=== PATIENT | male | born 1935 ===

== ENCOUNTER → 2016-10-07 | Day surgery (SDC) | payer BC ==
[~2016-10-07] MED LIST: Artificial Tear OPHTH.OINT* 3.5 GM ONE; Bacitracin OPHTH.OINT* 3.5 GM ONE; Buffered Lidocaine 1% SYR 3ML* 3 ML/SYR SYRINGE INTRADERM ONE; Lidocain 1% EPI 1:100,000 * 30 ML MDV ONE; Midazolam* 1 MG/ML 2 ML VIAL (2 MG) ONE; Propofol* 10 MG/ML 20 ML BTL IV PUSH ONE; ceFAZolin 2 GM PREMIX (*) 2 GM/50 ML BAG IVPB ONE; fentaNYL* 50 MCG/ML 2 ML VIAL (100 MCG VIAL) ONE
[2016-10-07 09:53] VITALS: BP 104/71
== END | disposition home or self-care (01) ==
LOC: OREAST 07:43
PROVIDERS: ATTEND Plastic Surgery
DX: L72.0 Epidermal cyst (principal); I48.92 Unspecified atrial flutter; Z79.01 Long term (current) use of anticoagulants; I10 Essential (primary) hypertension; Z95.2 Presence of prosthetic heart valve
CPT/HCPCS: 88304; A9270-GY; J0690; J2250; J2704; J3010

== ENCOUNTER 2019-06-19 10:15 | Day surgery (SDC) | payer BC ==
--- NOTE | 2019-06-13 12:33 | HP ---
AMENDED REPORT NOW INCLUDES DESIGNATED COSIGNER DATE OF ADMISSION: 06/19/2019. DATE OF OFFICE VISIT/ENCOUNTER: 06/04/2019. ATTENDING SURGEON: Dr. Ailyn Heck * (dictated by ROBINA Bernard). PROCEDURE: Right wrist carpal tunnel release. LEGAL TECHNICIAN: Dr. Mohan. HISTORY OF PRESENT ILLNESS: This is an 83-year-old male who complains of numbness and tingling in his right hand. This has been ongoing for over a year. It bothers him mostly at night. Symptoms effect the median nerve distribution of his right hand. He has had a carpal tunnel release in the past with very good results. He had an EMG in [place] approximately four years ago which showed carpal tunnel syndrome on the right as well. He would like to proceed with surgical intervention at this time. He has a history of atrial fibrillation and a mitral valve repair. We will get clearance from his basket turner, Dr. Mohan. The patient is on Xarelto daily. He will continue taking it during the perioperative time frame. PAST MEDICAL HISTORY: 1. History of atrial fibrillation. 2. Hypertension. PAST SURGICAL HISTORY: 1. Mitral valve repair. 2. Left carpal tunnel release. 3. Hernia repair. CURRENT MEDICATIONS: 1. Carvedilol 3.125 mg daily. 2. Losartan potassium 50 mg daily. 3. Multivitamin daily. 4. Red rice yeast. 5. Xarelto 20 mg daily. ALLERGIES: No known drug allergies FAMILY HISTORY: Cancer, diabetes. SOCIAL HISTORY: The patient is retired. He denies tobacco use and recreational drug use. He drinks alcohol on occasion. REVIEW OF SYSTEMS: Negative for general, cephalic, cardiovascular, respiratory , GI, , other musculoskeletal, integumentary, endocrine, neurologic, and hematologic symptoms. Infectious Disease: Negative for MRSA, hepatitis C, HIV. PHYSICAL EXAMINATION GENERAL: Well-developed, well-nourished, 83-year-old male in no acute distress. VITAL SIGNS: Height 5'10", weight 189 pounds. Pulse rate 60, blood pressure 126/74. HEENT: Normocephalic, atraumatic. Pupils are equal, round, and reactive to light and accommodation. Extraocular movements are intact. NECK: Supple. No palpable lymph nodes. Throat is clear. CARDIOVASCULAR: Regular rate and rhythm. S1, S2. No murmurs, rubs or gallops. No edema. PULMONARY: Lungs are clear to auscultation bilaterally. No wheezes, rales, or rhonchi. ABDOMEN: Positive bowel sounds. Soft, nontender. MUSCULOSKELETAL: On exam of his right hand, he has some mild thenar wasting and weakness with thumb abduction. He had good strength with finger abduction. He can fully flex and extend all of his fingers. He has a positive Tinel sign at the median nerve. NEUROLOGIC: Alert and oriented times three. Cranial nerves II through XII are intact. IMPRESSION: Right carpal tunnel syndrome. PLAN: The patient is scheduled to undergo a right wrist carpal tunnel release with Dr. Heck on 06/19/2019. He will return to the office ten days postop for follow- up and suture removal. A prescription for Tramadol was e-scribed to the patient's pharmacy for postoperative pain management. ROBINA BERNARD [id number]/[facility] #: [id number] MTDJeffery
[~2019-06-19 10:15] MED LIST changes: -Artificial Tear OPHTH.OINT* 3.5 GM ONE; -Bacitracin OPHTH.OINT* 3.5 GM ONE; -Buffered Lidocaine 1% SYR 3ML* 3 ML/SYR SYRINGE INTRADERM ONE; +Buffered Lidocaine 1% SYRIN* 1 ML/SYRINGE INTRADERM ONE; +Dexamethasone TAB* 4 MG PO ONE; +Famotidine IV* 10 MG/ML 2 ML (20 mg) IV ONE; +Lactated Ringers 1000 ML Bag* 1,000 ML IV SCH; -Lidocain 1% EPI 1:100,000 * 30 ML MDV ONE; -Midazolam* 1 MG/ML 2 ML VIAL (2 MG) ONE; +Naloxone* 0.4 MG/ML 1 ML VIAL IV PRN; +Ondansetron ODT TAB* 4 MG PO ONE; +PROCHLORPERAZINE INJ 5 MG/ML 2 ML VIAL IV PRN; -Propofol* 10 MG/ML 20 ML BTL IV PUSH ONE; -ceFAZolin 2 GM PREMIX (*) 2 GM/50 ML BAG IVPB ONE; -fentaNYL* 50 MCG/ML 2 ML VIAL (100 MCG VIAL) ONE; +oxyCODONE/Acetamin 5/325 MG* TAB PO PRN
[2019-06-19] MEDS ORDERED: Famotidine IV* 10 MG/ML 2 ML (20 mg) ONE (10:47)
[2019-06-19] MEDS ORDERED: Ondansetron ODT TAB* 4 MG ONE (10:47)
[2019-06-19] MEDS ORDERED: Dexamethasone TAB* 4 MG ONE (10:47)
[2019-06-19] MEDS ORDERED: fentaNYL* 50 MCG/ML 2 ML VIAL (100 MCG VIAL) ONE (11:18)
[2019-06-19] MEDS ORDERED: Midazolam* 1 MG/ML 2 ML VIAL (2 MG) ONE (11:18)
[2019-06-19] MEDS ORDERED: Lidocaine 1% INJ* 10 MG/ML 30 ML SDV ONE (11:43)
[2019-06-19] MEDS ORDERED: Propofol* 10 MG/ML 20 ML BTL ONE (12:08)
[2019-06-19] MEDS ORDERED: Lidocaine 2% PF * 5 ML VIAL ONE (12:08)
[2019-06-19 13:23] VITALS: BP 116/88
--- NOTE | 2019-06-19 16:36 | OP ---
DATE OF OPERATION: 06/19/19 [facility] DATE OF : 39 SURGEON: Ailyn Heck MD DINING SERVICE SUPERVISOR: ROBINA Bernard ANESTHESIA: Local MAC. PRE-OP DIAGNOSIS: Right carpal tunnel syndrome. POST-OP DIAGNOSIS: Right carpal tunnel syndrome. OPERATIVE PROCEDURE: Right carpal tunnel release. INDICATIONS: Tony is an 83-year-old male who has numbness and tingling in the median nerve distribution of his right hand. He presents for right carpal tunnel release. ESTIMATED BLOOD LOSS: Zero. TOURNIQUET TIME: Approximately 10 minutes. DESCRIPTION OF PROCEDURE: The patient was brought to the operating room and was given a sedation anesthetic and a local infiltration of 10 cc of 1% plain lidocaine in the palm of his right hand. Skin of his right hand and forearm was prepped and draped in the usual sterile fashion. The hand and forearm were exsanguinated and the tourniquet elevated to 250 mmHg. A longitudinal incision was made on the palm in line with the ring finger. We dissected through the subcutaneous tissue down to the transverse carpal ligament. The ligament was divided sharply with a knife and then more proximally with the scissors. The nerve was dissected free from the surrounding tissue and there was an area of severe compression at the mid portion of the ligament. The wound was irrigated and the skin edges were reapproximated with 4-0 nylon suture. The wound was dressed with Xeroform, 4x4, Webril, and an Fan wrap. The patient tolerated the procedure well and was brought to the recovery room in good condition. [id number]/[facility] #: [id number] [facility] HOSPITALJeffery
== END 2019-06-19 13:15 | disposition home or self-care (01) ==
LOC: OREAST 10:15
PROVIDERS: ATTEND Orthopaedic Surgery
DX: G56.01 Carpal tunnel syndrome, right upper limb (principal); I10 Essential (primary) hypertension; I48.91 Unspecified atrial fibrillation; Z79.01 Long term (current) use of anticoagulants; Z87.891 Personal history of nicotine dependence; Z95.2 Presence of prosthetic heart valve
CPT/HCPCS: A9270-GY; J2250; J2704; J3010; J8540

== ENCOUNTER 2022-02-12 12:39 | Observation (INO) ==
[2022-02-12 14:45] LABS: ABS Basophils 0.1 10^3/ul (0-0.2); ABS Eosinophils 0.2 10^3/ul (0-0.6); ABS Lymphocytes 1.3 10^3/ul (1.0-4.8); ABS Monocytes 0.6 10^3/ul (0-0.8); ABS Neutrophils 3.6 10^3/ul (1.5-7.7); Eosinophil % 3.3 %; Hematocrit 41 % (42-52); Hemoglobin 13.7 g/dL (14.0-18.0); Lymphocyte % 22.7 %; Mean Corpuscular HGB Conc 33 g/dL (31-36); Mean Corpuscular Hemoglobin 31 pg (27-31); Mean Corpuscular Volume 95 fL (80-94); Mean Platelet Volume 8.3 fL (7.4-10.4); Platelet Count 185 10^3/uL (150-450); Red Blood Count 4.35 10^6 /uL (4.18-5.48); Red Cell Distribution Width 14 % (10-15); White Blood Count 5.8 10^3/uL (3.5-10.8)
[2022-02-12 14:56] LABS: INR 1.17 (0.86-1.15)
[2022-02-12 15:40] LABS: Albumin/Globulin Ratio 1.5 (1-3); Calcium 8.7 mg/dL (8.6-10.3); Globulin 2.6 g/dL (2-4); Potassium 4.5 mmol/L (3.5-5.0); Total Bilirubin 0.7 mg/dL (0.2-1.0); Total Protein 6.6 g/dL (6.4-8.9); eGFR CKD-EPI 63.4 (>60)
[2022-02-12] MEDS ORDERED: Iohexol 350 (CONTRAST) 500 ML MDV IV ONE (15:51)
[2022-02-12 16:19] LABS: High Sensitivity Troponin 1 Hr 7 pg/mL (<20)
[2022-02-12 21:20] LABS: Urine Appearance Clear; Urine Bilirubin Negative (Negative); Urine Blood Negative (Negative); Urine Color Yellow; Urine Glucose Negative (Negative); Urine Ketones Negative (Negative); Urine Nitrite Negative (Negative); Urine Protein Negative (Negative); Urine Specific Gravity 1.014 (1.002-1.030); Urine Urobilinogen Negative (Negative)
[2022-02-13 05:19] LABS: ABS Eosinophils 0.3 10^3/ul (0-0.6); ABS Lymphocytes 1.2 10^3/ul (1.0-4.8); ABS Monocytes 0.6 10^3/ul (0-0.8); Eosinophil % 5.2 %; Hematocrit 39 % (42-52); Hemoglobin 13.1 g/dL (14.0-18.0); Lymphocyte % 24.2 %; Mean Corpuscular HGB Conc 33 g/dL (31-36); Mean Corpuscular Hemoglobin 32 pg (27-31); Mean Corpuscular Volume 94 fL (80-94); Mean Platelet Volume 8.2 fL (7.4-10.4); Platelet Count 173 10^3/uL (150-450); Red Blood Count 4.15 10^6 /uL (4.18-5.48); Red Cell Distribution Width 14 % (10-15); White Blood Count 5.1 10^3/uL (3.5-10.8)
[2022-02-13 05:57] LABS: Albumin 3.6 g/dL (3.2-5.2); Albumin/Globulin Ratio 1.4 (1-3); Calcium 8.6 mg/dL (8.6-10.3); Globulin 2.5 g/dL (2-4); HDL Cholesterol 38.1 mg/dL; Potassium 4.1 mmol/L (3.5-5.0); Total Bilirubin 0.9 mg/dL (0.2-1.0); Total Protein 6.1 g/dL (6.4-8.9); eGFR CKD-EPI 75.1 (>60)
[2022-02-13 06:07] LABS: TSH Ultra Thyroid Stim Horm 2.45 mcIU/mL (0.34-5.60)
[2022-02-13] MEDS ORDERED: Vitamin THERAPEUTIC TAB PO SCH (09:00)
[2022-02-13] MEDS ORDERED: RED YEAST RICE 600 MG PO SCH (09:00)
[2022-02-13 12:18] VITALS: BP 132/67
== END 2022-02-13 15:50 | disposition home or self-care (01) ==
LOC: ED 12:39 → EDHOLD 12:39 → MEDTELE 20:36
PROVIDERS: ADMIT Student in an Organized Health Care Education/Training Program; ATTEND Student in an Organized Health Care Education/Training Program